=== PATIENT | female | born 1980 | race Caucasian/White ===

== ENCOUNTER 2019-02-12 05:08 | Emergency (ER) | payer BC, SELFPAY ==
[2019-02-12 05:09] VITALS: BP 105/88; PULSE 89; RESP 18; TEMP 36.6; O2SAT 100; BMI 17.3
[2019-02-12] MEDS: 0.9% Normal Saline 1,000 ML 1000 ML IV (05:19)
--- NOTE | 2019-02-12 05:19 | ED.VIS.GEN ---
History of Present Illness Chief Complaint: Nausea/Vomiting Informant: Patient Narrative: Patient stated yesterday evening she started having nausea and vomiting while at work. No bad food exposures. No recent antibiotics. Nothing she can think of that brought in on. She is never had a before. No fevers or chills. No abdominal pain or diarrhea. No home treatment. Current severity is moderate. She stated she is vomited more than 5 or 6 times. She is having dry heaving. Denies . Past Medical History - Allergies and Home Meds Allergies/Adverse Reactions: Allergies Penicillins Adverse Reaction (Verified 02/12/19 05:09) Rash Primary Care Physician: Juventino Wright DO [NON CLINICAL AFFILIATE] - Prior records reviewed: Yes Past Medical History: - - Asthma Surgical History: - - Reviewed with patient Lives: With Family Smoking Status: Never smoker Alcohol: None Drugs: None Review of Systems General: Denies: Chills, Fever, Sweats Eyes: Denies: Visual changes - bilaterally, Diplopia ENT: Denies: Rhinorrhea, Sore throat Cardiovascular: Denies: Chest pain, Palpitations Respiratory: Denies: Dyspnea, Cough, Dyspnea on exertion Gastrointestinal: Reports: Nausea, Vomiting. Denies: Abdominal pain, Diarrhea, Melena, Hematochezia Genitourinary: Denies: Dysuria, Hematuria, Frequency Musculoskeletal: Denies: Back pain, Extremity Pain Skin: Denies: Rash, Wounds Neurological: Denies: Headache, Weakness, Numbness Physical Exam Vital Signs/Narrative: Vital Signs Temp Pulse Resp BP Pulse Ox 02/12/19 05:09 97.9 F 89 18 105/88 H 100 General: Well nourished, Well developed, No Acute Distress Head: Normocephalic, Atraumatic Eyes: Perrl, EOMI ENT: Moist mucous membranes, No rhinorrhea Neck: Supple, Nontender Cardiovascular: Regular rate, Regular rhythm, No murmurs Respiratory: No distress, CTA bilaterally, Chest nontender Abdomen: Soft, Nontender, Nondistended, Normal bowel sounds Back: Nontender, Normal Inspection Extremities: Nontender, No edema Skin: Normal color, No rash Neurological: Alert, Oriented x3, Cranial nerves II-XII grossly intact, Normal Strength, Normal Sensation Psychological: Normal affect, Normal Mood Diagnostic/Tx/Re-eval - Medical Decision Making Given IV fluids and Zofran and Phenergan with good relief of symptoms. I do not feel she needs lab work or imaging. She is nontoxic. She will be given Zofran and Phenergan for home. This should help her symptoms stop. I feel she has an uncomplicated nausea and vomiting did have some dry heaves here but nothing that produced fluid ED Disposition - Plan for ED Patient: Disposition: Home or Assisted Living Diagnosis: Nausea and vomiting Instructions: VOMITING (7y-Adult) Prescriptions: proMETHazine tablet [Phenergan] 25 mg PO Q6H PRN PRN #10 tab PRN Reason: Nausea Prescription Printed Ondansetron [Zofran Odt] 4 mg PO Q8H PRN PRN #10 tab PRN Reason: Nausea Prescription Printed Referrals: Juventino Wright DO [NON CLINICAL AFFILIATE] -
[2019-02-12] MEDS: Ondansetron 4 MG/2 ML Vial IV ×2 (05:21→06:55)
[2019-02-12] MEDS: proMETHazine 25 MG/ML Syringe 12.5 MG IV (06:18)
[2019-02-12] MEDS: DiphenhydrAMINE 50 MG/ML Syringe 25 MG IV (07:41)
[2019-02-12] MEDS: Metoclopramide 10 MG/2 ML Vial IV (07:41)
[2019-02-12 07:43] VITALS: BP 119/62; PULSE 54; RESP 16; O2SAT 98
[2019-02-12 08:34] VITALS: BP 132/69; PULSE 59; RESP 16; O2SAT 99
== END 2019-02-12 08:35 | disposition home or self-care (01) ==
PROVIDERS: Emergency Provider Emergency Medicine; Family Provider Family Medicine; PCP Family Medicine
DX: R11.2 Nausea with vomiting, unspecified (principal); J45.909 Unspecified asthma, uncomplicated
CPT/HCPCS: 96361; 96374; 96375; 96376; 99283; J7030; A4216; J2405

== ENCOUNTER 2021-03-26 15:06 | Emergency (ER) | payer OTHER, SELFPAY ==
[2021-03-26 15:07] VITALS: BP 90/56; PULSE 123; RESP 24; TEMP 36.6; O2SAT 96; BMI 17.3
--- NOTE | 2021-03-26 15:20 | RAD_ITS ---
STUDY: X-RAY CHEST REASON FOR EXAM: Female, 40 years old. Dyspnea asthma attack TECHNIQUE: Frontal portable view of the chest COMPARISON: 15 March 2012 FINDINGS: Lungs are severely hyperinflated. There is no pneumothorax, pulmonary opacities, cardiomegaly or pleural effusion. Appearance is similar to prior. RAD/Chest 1 View (Portable) IMPRESSION: Severe hyperinflation. Otherwise no acute chest disease. Electronically Signed: Rosalina Jordan MD at 16:10 EST Tel , Service support ,
[2021-03-26] MEDS: Ipratropium/Albuterol Sulfate 3 ML AMPUL.NEB INHALATION (15:21)
[2021-03-26 15:22] VITALS: PULSE 120; RESP 21
[2021-03-26 15:28] VITALS: PULSE 108; RESP 17; O2SAT 95
[2021-03-26] MEDS: MethylPREDNISolone 125 MG/2 ML Vial 80 MG IV (15:30)
[2021-03-26 15:33] VITALS: O2SAT 94
[2021-03-26 15:37] LABS: Absolute Lymphocyte Count 4.13 X10^3/uL (0.83-4.51); Absolute Neutrophil Count 4.3 X10^3/uL (2.0-7.7); Basophil# 0.06 X10^3/uL; Basophil% 0.6 % (0-1); Eosinophil# 0.58 X10^3/uL; Eosinophils% 5.9 % (0-5); Hematocrit 44.8 % (37-47); Hemoglobin 15.3 g/dL (12.0-15.0); Lymphocyte # 4.13 X10^3/ul (0.83-4.51); Lymphocyte % 42.4 % (19-41); Mean Corp Hgb Conc 34.2 g/dL (32-36); Mean Corpuscular Hgb 32.6 pg (27.0-32.0); Mean Corpuscular Volume 95.3 fL (81-99); Mean Platelet Vol. 8.7 fl (6.2-12.0); Monocyte# 0.63 X10^3/uL; Monocyte% 6.5 % (0-10); NRBC Flagged by Analyzer 0 % (0-5); Neutrophil # 4.31 X10^3/uL (2.7-7.7); Neutrophil % 44.2 % (47-70); Platelet Count 401 K/mm3 (150-450); RBC Distribution Width CV 12.4 % (11.6-14.6); RBC Distribution Width SD 43.1 fl (35.1-43.9); White Blood Count 9.8 K/mm3 (4.4-11.0)
--- NOTE | 2021-03-26 15:37 | EDS_ITS ---
HPI History of Present Illness Chief Complaint: Asthma Informant: patient Onset/Context/Timing Onset: Today Context: sudden Timing: Continuous Quality: Positive for Wheezing and - (Tightness) Worsened by: Nothing Relieved by: Nothing Associated Symptoms cough and clear sputum; Negative for rhinorrhea, ear pain, fever, sore throat or chills Chest Pain: Positive for None Narrative Narrative: Patient presents with shortness of breath that has been getting worse over the past hour and a half. Patient states it came on rather suddenly. Patient states it has been constant. Patient states it feels like there is a tightness across her chest. Patient states nothing makes it better nothing makes it worse. Patient states she has been using albuterol at home with no improvement. Patient admits to a cough with some clear sputum. Patient denies any fevers or chills. Patient denies any chest pain. [facility] Medical History (Updated 03/26/21 @ 16:[address] Melvin Seo DO) Asthma History of inguinal hernia Home Medications albuterol sulfate [Proair Hfa (SP)Vent Pts] 1 - 2 puff INHALATION Q4H PRN PRN 03/05/17 [History Last Taken Unknown] prednisone 60 mg PO DAILY #15 tablet 03/26/21 [Rx Last Taken Unknown] Allergy/AdvReac Type Severity Reaction Status Date / Time Penicillins AdvReac Rash Verified 03/26/21 15:09 Surgical History (Updated 03/26/21 @ 15:[address] Melvin Seo DO) Hx of inguinal herniorrhaphy Social History Smoking Status: Never smoker ROS ROS ED Constitutional Constitutional ED: Denies chills or fever(s) Eyes Eyes: Denies blurry vision or change in vision ENT ENT ED: Denies rhinorrhea or sore throat Cardiovascular Cardiovascular: Denies chest pain or palpitations Respiratory/Chest Respiratory/Chest: Reports cough and dyspnea Gastrointestinal Gastrointestinal: Denies nausea or vomiting Genitourinary Genitourinary ED: Denies dysuria or hematuria Musculoskeletal Musculoskeletal: Denies back pain or neck pain Integumentary Denies abscess or rash Neurologic Neurologic: Denies headache(s) or weakness Allergic/Immunologic Allergic/Immunologic ED: Denies mouth swelling or urticaria EXAM Physical Exam Const Vital Signs: 03/26/21 15:07 11/07/21 15:22 03/26/21 15:28 Temperature 97.8 F Temperature Source Temporal Pulse Rate 123 H 120 H 108 H Respiratory Rate 24 H 21 H 17 Respiratory Effort Respiratory Depth Respiratory Pattern Tachypnea Blood Pressure 90/56 L Blood Pressure Mean 67 Pulse Ox 96 95 Oxygen Delivery Method Room Air Room Air 03/26/21 15:33 Temperature Temperature Source Pulse Rate Respiratory Rate Respiratory Effort Normal Respiratory Depth Normal Respiratory Pattern Normal Blood Pressure Blood Pressure Mean Pulse Ox Oxygen Delivery Method Room Air Positive well nourished and well developed General Appearance ED: well developed HEENT Reports moist mucous membranes Neck supple and no JVD Resp normal respiratory effort Auscultation: wheezes expiratory wheezes and throughout Cardio regular rhythm and no murmurs Rate: tachycardic GI normal to inspection, nondistended, normoactive bowel sounds and non-tender Palpation: soft Extremity normal to inspection General Extremety ED: Negative for edema or tenderness General Extremity: Negative for edema Neuro oriented x3, CN's II-XII intact bilaterally and no sensory deficits noted Sensorium / Orientation: alert Motor Exam: strength 5/5 throughout Psych mental status grossly normal Skin no rashes or lesions noted MDM MDM MDM Narrative Medical decision making narrative: Patient was on a DuoNeb here. Patient was given a dose of Solu-Medrol here. CBC and comprehensive metabolic profile were obtained were all within normal limits. Portable 1 view chest x-ray was obtained. On my interpretation, lung murillo are clear. There is normal cardiac silhouette. Bony thorax is normal. There is no acute process noted. Radiologist also interpreted the x-ray and agrees. Patient is feeling better on reevaluation. Lungs are clear on reevaluation. Patient was given a prescription for prednisone. Patient was instructed to follow-up with her primary care physician in 3 to 5 days. Patient was instructed to continue her albuterol as needed. Patient understood and was agreeable with the plan. All questions were answered. Lab Data Attestation: I reviewed the patient's lab results. Labs: Laboratory Results - last 24 hr 03/26/21 03/26/21 15:30 15:30 WBC 9.8 RBC 4.70 Hgb 15.3 H Hct 44.8 MCV 95.3 MCH 32.6 H MCHC 34.2 RDW Std Deviation 43.1 RDW Coeff of Meredith 12.4 Plt Count 401 MPV 8.7 Immature Gran % (Auto) 0.400 Neut % (Auto) 44.2 L Lymph % (Auto) 42.4 H Levy % (Auto) 6.5 Eos % (Auto) 5.9 H Baso % (Auto) 0.6 Absolute Neuts (auto) 4.3 Absolute Lymphs (auto) 4.13 Nucleated RBC % 0 Sodium 140 Potassium 3.8 Chloride 107 Carbon Dioxide 27.0 Anion Gap 6 BUN 13 Creatinine 1.05 H Estim Creat Clear Calc 50.48 Est GFR (MDRD) Af Amer 75 Est GFR (MDRD) Non-Af 62 BUN/Creatinine Ratio 12.4 Glucose 115 H Calcium 8.9 Total Bilirubin 0.30 AST 26 ALT 23 Alkaline Phosphatase 44 L Total Protein 7.9 Albumin 4.3 Globulin 3.6 Albumin/Globulin Ratio 1.2 Radiography Chest X-Ray - ED: 1 View, Read by ED Physician, Read by Radiologist and Normal Diagnostic Testing: Clinical Impression(s) from Imaging Studies Chest X-Ray 03/26/21 15:20 IMPRESSION: Severe hyperinflation. Otherwise no acute chest disease. Electronically Signed: Rosalina Jordan MD at 16:10 EST Tel , Service support , Discharge Plan Triage Chief Complaint: Asthma ED Provider: Melvin Seo Dx/Rx/DC Orders Clinical Impression: Asthma with acute exacerbation in adult Instructions: ED Asthma, Acute (Adult) Prescriptions: New prednisone 20 MG tablet 60 mg PO DAILY Qty: 15 RF: 0 No Action albuterol sulfate [ProAir HFA] 1 PUFF inhaler 1 - 2 puff inhalation Q4H PRN PRN (Reason: Bronchodialation) RF: 0 Primary Care Provider: Femi Richey Referrals: Femi Richey MD [Primary Care Provider] - 3-5 Days Activity Restrictions/Additional Instructions: Do not start the prednisone until tomorrow. Disposition Disposition: Home, Self Care
[2021-03-26 16:00] LABS: ALB/GLOB Ratio 1.2 RATIO (0.9-2.4); AST(SGOT) 26 U/L (15-37); Alanine Aminotransfer ALT/SGPT 23 U/L (13-56); Albumin, Serum 4.3 g/dL (3.2-5.0); Alkaline Phosphatase 44 U/L (45-117); Anion Gap 6 (5-15); BUN 13 mg/dL (7-18); BUN/Creat Ratio 12.4 RATIO (10-20); Calcium,Total 8.9 mg/dL (8.5-10.1); Chloride 107 mmol/L (98-107); Creatinine, Serum 1.05 mg/dL (0.55-1.02); EST Glomerular Filtration Rate 62 mL/min (>60); Est Glom Filt Rate - Afr Amer 75 mL/min (>60); Estimated Creatinine Clearance 50.48 ml/min; Globulin 3.6 g/dL (2.2-4.2); Glucose 115 mg/dL (74-106); Potassium 3.8 mmol/L (3.5-5.1); Protein, Total 7.9 g/dL (6.4-8.2); Sodium Level 140 mmol/L (136-145)
[2021-03-26 16:51] VITALS: PULSE 93; RESP 14; O2SAT 97
== END 2021-03-26 16:52 | disposition home or self-care (01) ==
PROVIDERS: Emergency Provider Emergency Medicine; PCP Family Medicine
DX: J45.901 Unspecified asthma with (acute) exacerbation (principal)
CPT/HCPCS: 71045; 80053; 85025; 94640; 96374; 99284; A4216

== ENCOUNTER 2021-04-08 18:05 | Emergency (ER) | payer OTHER, SELFPAY ==
[2021-04-08 18:06] VITALS: BP 119/66; PULSE 104; RESP 25; TEMP 36.2; O2SAT 94; BMI 16.9
[2021-04-08 18:14] VITALS: PULSE 110; RESP 21; O2SAT 95
--- NOTE | 2021-04-08 18:28 | EX.ED.DYSGE1 ---
HPI History of Present Illness Chief Complaint: Asthma Informant: patient Narrative Narrative: 40-year-old female presenting with shortness of breath. Patient has a history of asthma and has been using her albuterol inhaler without relief. She has had a productive cough. She denies fever. Denies sick contacts. She is vaccinated for Covid. Prior similar symptoms: Yes Recent Illness/Hospitalization: No PFSH PFSH Medical History (Updated 04/08/21 @ 20:[address] Paulina Armendariz MD) Asthma History of inguinal hernia Home Medications albuterol sulfate [Proair Hfa (SP)Vent Pts] 1 - 2 puff INHALATION Q4H PRN PRN 03/05/17 [History Last Taken Unknown] albuterol sulfate 2.5 mg INHALATION Q6H PRN #20 ml 04/08/21 [Rx Last Taken Unknown] prednisone 40 mg PO DAILY #10 tab 04/08/21 [Rx Last Taken Unknown] Allergy/AdvReac Type Severity Reaction Status Date / Time Penicillins AdvReac Rash Verified 04/08/21 18:07 Surgical History (Updated 03/26/21 @ 15:[address] Melvin Seo DO) Hx of inguinal herniorrhaphy Social History Smoking Status: Never smoker ROS ROS ED Constitutional Constitutional ED: Denies fever(s) Eyes Eyes: Denies change in vision ENT ENT ED: Denies rhinorrhea or sore throat Cardiovascular Cardiovascular: Denies chest pain or palpitations Respiratory/Chest Respiratory/Chest: Reports cough, dyspnea and sputum Gastrointestinal Gastrointestinal: Denies abdominal pain, diarrhea, nausea or vomiting Genitourinary Genitourinary ED: Denies dysuria Musculoskeletal Musculoskeletal: Denies myalgias Integumentary Denies rash Neurologic Neurologic: Denies headache(s) EXAM Physical Exam Const Vital Signs: 04/08/21 18:06 04/08/21 18:14 04/08/21 18:32 Temperature 97.1 F L Temperature Source Temporal Pulse Rate 104 H 110 H 118 H Respiratory Rate 25 H 21 H 22 H Respiratory Effort Short of Breath Labored Accessory Muscle Use Short of Breath Labored Respiratory Depth Deep Shallow Respiratory Pattern Tachypnea Tachypnea Blood Pressure 119/66 Blood Pressure Mean 83 Pulse Ox 94 95 95 Oxygen Delivery Method Room Air Room Air Room Air 04/08/21 19:28 04/08/21 20:18 04/08/21 20:40 Temperature Temperature Source Pulse Rate 110 H 109 H 111 H Respiratory Rate 12 12 12 Respiratory Effort Respiratory Depth Respiratory Pattern Blood Pressure 99/77 Blood Pressure Mean Pulse Ox 95 100 95 Oxygen Delivery Method Room Air Room Air Positive well nourished and well developed General Appearance ED: well developed HEENT Reports normocephalic and head/scalp atraumatic Eyes PERRL and EOMs intact bilaterally Neck supple General: Negative for tenderness Chest Wall inspection of chest normal Resp normal respiratory effort Auscultation: wheezes and diminished lung sounds Cardio regular rate and regular rhythm GI non-tender and non-distended Palpation: soft; Negative for guarding or rebound tenderness present no CVA tenderness Extremity normal to inspection Neuro oriented x3 Sensorium / Orientation: alert Psych mental status grossly normal MDM MDM MDM Narrative Medical decision making narrative: Patient was given albuterol, Atrovent aerosols. She was given prednisone. Chest x-ray read by myself and radiology shows no acute process. Covid is negative. On reevaluation, patient is feeling much improved. Her lungs are clear and equal bilaterally. She states she has a nebulizer at home but does not have medication for it. She was given prescription for albuterol. She was given prescription for prednisone. She will follow-up with her primary care physician. Advised return to ED for worsening complaints. Lab Data Attestation: I reviewed the patient's lab results. Radiography Diagnostic Testing: Clinical Impression(s) from Imaging Studies Chest X-Ray 04/08/21 19:45 IMPRESSION: Nonacute portable x-ray examination of the chest. Hyperexpansion compatible with history provided of asthma. Electronically Signed: Jose David Waters MD ([place]) at 20:23 EST , Service support , Discharge Plan Triage Chief Complaint: Asthma ED Provider: Paulina Armendariz Dx/Rx/DC Orders Clinical Impression: Asthma exacerbation Instructions: Asthma Prescriptions: New albuterol sulfate 5 mg/mL solution for nebulization 2.5 mg inhalation Q6H PRN (Reason: shortness of breath or wheezing) Qty: 20 RF: 0 prednisone 20 mg tablet 40 mg PO DAILY Qty: 10 RF: 0 No Action albuterol sulfate [ProAir HFA] 1 PUFF inhaler 1 - 2 puff inhalation Q4H PRN PRN (Reason: Bronchodialation) RF: 0 Primary Care Provider: Femi Richey Referrals: Femi Richey MD [Primary Care Provider] - Disposition Disposition: Home, Self Care Discharge Date/Time: 04/08/21 20:43
[2021-04-08 18:32] VITALS: PULSE 118; RESP 18; RESP 22; O2SAT 95
[2021-04-08] MEDS: Ipratropium/Albuterol Sulfate 3 ML AMPUL.NEB INHALATION (18:32)
[2021-04-08] MEDS: Albuterol 2.5 MG/3 ML VIAL.NEB. INHALATION ×3 (18:48→20:14)
[2021-04-08] MEDS: predniSONE 20 MG Tablet 60 MG PO (18:51)
--- NOTE | 2021-04-08 19:19 | CPS ---
x2 Albuterol given to pt. in ER as well. She refuses 3rd albuterol at this time, due to increase in tremors, heart rate and she claims they're not helping her much at this time
[2021-04-08 19:28] VITALS: PULSE 110; RESP 12; O2SAT 95
--- NOTE | 2021-04-08 19:45 | RAD_ITS ---
STUDY: X-RAY CHEST REASON FOR EXAM: Female, 40 years old. sob , asthma. TECHNIQUE: AP COMPARISON: 03/26/2021 FINDINGS: EKG leads project over the chest. The lungs are clear but hyper expanded. There is no demonstrated pleural abnormality. Normal size heart. Normal mediastinum and arlen. Normal visualized pulmonary arteries. Normal visualized aortic arch and descending thoracic aorta. Normal visualized thoracic spine. Normal visualized ribs, clavicles, and shoulders. There is no demonstrated abnormality of the visualized soft tissue structures of the upper abdomen. RAD/Chest 1 View (Portable) IMPRESSION: Nonacute portable x-ray examination of the chest. Hyperexpansion compatible with history provided of asthma. Electronically Signed: Jose David Waters MD ([place]) at 20:23 EST , Service support ,
[2021-04-08 20:18] VITALS: PULSE 109; RESP 12; O2SAT 100
--- NOTE | 2021-04-08 20:29 | CPS ---
[2014] Pt. asked for third albuterol breathing tx. in ER. Pre-assessment: HR 95, breaths/min 16 with diminished breath sounds. Post-assessment: HR 105, breaths/min 14 with cleared up upper lobe breath sounds.
[2021-04-08 20:40] VITALS: BP 99/77; PULSE 111; RESP 12; O2SAT 95
== END 2021-04-08 20:43 | disposition home or self-care (01) ==
PROVIDERS: Emergency Provider Emergency Medicine; PCP Family Medicine
DX: J45.901 Unspecified asthma with (acute) exacerbation (principal)
CPT/HCPCS: 71045; 87426; 94640; 99251; 99282; G0463

== ENCOUNTER 2021-04-20 06:59 | Emergency (ER) | payer OTHER, SELFPAY ==
[2021-04-20 07:00] VITALS: PULSE 131; RESP 27; TEMP 35.8; O2SAT 97; BMI 17.5
[2021-04-20 07:04] VITALS: PULSE 142; RESP 21; RESP 22; O2SAT 96
[2021-04-20 07:06] VITALS: BP 145/123; PULSE 127; RESP 26; O2SAT 96
--- NOTE | 2021-04-20 07:06 | RAD_ITS ---
HISTORY: respiratory distress EXAMINATION/TECHNIQUE: XR Chest 1 View: COMPARISON: April 08, 2021 FINDINGS: LINES/DEVICES: None. LUNGS: Lungs are symmetrical hyperexpanded. No airspace consolidation. Unremarkable interstitium. No effusion. No pneumothorax. MEDIASTINUM: No cardiomegaly. MUSCULOSKELETAL: No acute osseous finding. RAD/Chest 1 View (Portable) IMPRESSION: Symmetric hyperexpansion as can be seen with asthma in the appropriate setting. No evidence of consolidative pneumonia. at 0753 Reported and signed by: Ar Echevarria MD Electronically Signed: Ar Echevarria MD at 7:51 EST Tel , Service support ,
--- NOTE | 2021-04-20 07:07 | EX.ED.DYSGE1 ---
HPI History of Present Illness Chief Complaint: Asthma Informant: patient Narrative Narrative: 40-year-old female with a prior medical history of asthma presenting to the emergency room with respiratory distress. Patient was seen twice last month in the emergency room for asthma exacerbation. The last was 08 April. Patient states that over the weekend she began to have some sinus congestion and cough. Her nebulizer at home was helping her until this morning when it failed to relieve her symptoms. She denies any fever. She does note chest congestion with cough and sputum production. [facility] Medical History Asthma History of inguinal hernia Home Medications albuterol sulfate [Proair Hfa (SP)Vent Pts] 1 - 2 puff INHALATION Q4H PRN PRN 03/05/17 [History Last Taken Unknown] albuterol sulfate 2.5 mg INHALATION Q6H PRN #20 ml 04/08/21 [Rx Last Taken Unknown] prednisone 40 mg PO DAILY #10 tab 04/08/21 [Rx Last Taken Unknown] albuterol sulfate [Ventolin HFA] 2 puff INHALATION Q4H PRN PRN #1 inhaler 04/20/21 [Rx Last Taken Unknown] prednisone 60 mg PO DAILY #15 tablet 04/20/21 [Rx Last Taken Unknown] Allergy/AdvReac Type Severity Reaction Status Date / Time Penicillins AdvReac Rash Verified 04/20/21 07:00 Surgical History Hx of inguinal herniorrhaphy Social History (Updated 04/20/21 @ 07:[address] Siva Pérez DO) Smoking Status: Never smoker substance use type: does not use ROS ROS ED Constitutional Constitutional ED: Denies chills or weight loss Eyes Eyes: Denies change in vision or diplopia ENT ENT ED: Denies ear pain, rhinorrhea or sore throat Cardiovascular Cardiovascular: Denies chest pain, orthopnea, palpitations or racing heartbeat Respiratory/Chest Respiratory/Chest: Reports cough, dyspnea, dyspnea on exertion and sputum; Denies orthopnea Gastrointestinal Gastrointestinal: Denies abdominal pain, diarrhea, nausea or vomiting Genitourinary Genitourinary ED: Denies dysuria, hematuria or urinary frequency Musculoskeletal Musculoskeletal: Denies arthralgias or myalgias Integumentary Denies abscess or rash Neurologic Neurologic: Denies headache(s) or weakness Psychiatric Psychiatric: Denies anxiety, depression, suicidal ideation or suicidal thoughts Endocrine Endocrinology: Denies polydipsia, polyphagia or polyuria Allergic/Immunologic Allergic/Immunologic ED: Denies mouth swelling, tongue swelling or urticaria EXAM Physical Exam Narrative Exam Narrative: Patient is sitting in the tripod position in obvious respiratory distress Const Vital Signs: 04/20/21 07:00 04/20/21 07:04 04/20/21 07:06 Temperature 96.4 F L Temperature Source Temporal Pulse Rate 131 H 142 H 127 H Respiratory Rate 27 H 21 H 26 H Respiratory Effort Short of Breath Labored Accessory Muscle Use Head Bobbing Blood Pressure 145/123 H Blood Pressure Mean 130 Pulse Ox 97 96 96 Oxygen Delivery Method Room Air Room Air 04/20/21 07:34 04/20/21 08:06 Temperature 97.4 F L Temperature Source Temporal Pulse Rate 120 H Respiratory Rate 14 Respiratory Effort Short of Breath Labored Accessory Muscle Use Nasal Flaring Blood Pressure 101/80 Blood Pressure Mean 87 Pulse Ox 99 Oxygen Delivery Method Room Air Non-Rebreather Positive well nourished and well developed General Appearance ED: well developed HEENT Reports normocephalic, head/scalp atraumatic, TM's clear and moist mucous membranes HEENT Narrative: Turbinate edema Negative for trauma Tympanic Membrane ED: Yes TM's clear Eyes PERRL and EOMs intact bilaterally Neck no lymphadenopathy, supple and no JVD Resp Resp Narrative: Respiratory distress Auscultation: wheezes and diminished lung sounds Cardio regular rate and no murmurs Rate: tachycardic GI normal to inspection, nondistended, normoactive bowel sounds and non-tender Palpation: soft Back/Spine no CVA tenderness and normal ROM Extremity normal to inspection General Extremety ED: Negative for edema General Extremity: Negative for edema Neuro oriented x3 and CN's II-XII intact bilaterally Sensorium / Orientation: alert Motor Exam: strength 5/5 throughout Psych mental status grossly normal Mood & Affect: Negative for depressed or tearful Skin no rashes or lesions noted and no wounds MDM MDM MDM Narrative Medical decision making narrative: White count 11.3. Covid negative. Chest x-ray shows symmetric hyperexpansion. Patient received DuoNeb albuterol and Solu-Medrol and was observed. She is doing significantly better. Her lung sounds demonstrate significantly improved aeration. Patient used to be on Advair but due to insurance reasons discontinued it. She has had 3 asthma attacks necessitating emergency department treatments in the past month. She would benefit from pulmonary care. She does not currently see a ep technologist. She has albuterol solution at home. I will write for new MDI also place her on steroids Lab Data Attestation: I reviewed the patient's lab results. Labs: Laboratory Results - last 24 hr 04/20/21 04/20/21 07:25 07:25 WBC 11.3 H RBC 4.83 Hgb 15.5 H Hct 44.8 MCV 92.8 MCH 32.1 H MCHC 34.6 RDW Std Deviation 44.3 H RDW Coeff of Meredith 12.9 Plt Count 442 MPV 9.0 Immature Gran % (Auto) 0.800 Neut % (Auto) 55.9 Lymph % (Auto) 30.3 [place] % (Auto) 6.9 Eos % (Auto) 5.5 H Baso % (Auto) 0.6 Absolute Neuts (auto) 6.3 Absolute Lymphs (auto) 3.43 Nucleated RBC % 0 Sodium 139 Potassium 3.8 Chloride 107 Carbon Dioxide 22.0 Anion Gap 10 BUN 10 Creatinine 0.77 Estim Creat Clear Calc 67.43 Est GFR (MDRD) Af Amer 107 Est GFR (MDRD) Non-Af 89 BUN/Creatinine Ratio 13.0 Glucose 126 H Calcium 9.2 Radiography Diagnostic Testing: Clinical Impression(s) from Imaging Studies Chest X-Ray 04/20/21 07:06 IMPRESSION: Symmetric hyperexpansion as can be seen with asthma in the appropriate setting. No evidence of consolidative pneumonia. at 0753 Reported and signed by: Ar Echevarria MD Electronically Signed: Ar Echevarria MD at 7:51 EST Tel , Service support , Discharge Plan Triage Chief Complaint: Asthma ED Provider: Siva Pérez Dx/Rx/DC Orders Clinical Impression: Acute asthma exacerbation Instructions: ED Asthma, Acute (Adult) Prescriptions: New prednisone 20 MG tablet 60 mg PO DAILY Qty: 15 RF: 0 albuterol sulfate [Ventolin HFA] 1 INHALER inhaler 2 puff inhalation Q4H PRN PRN (Reason: Wheezing) Qty: 1 RF: 0 No Action albuterol sulfate [ProAir HFA] 1 PUFF inhaler 1 - 2 puff inhalation Q4H PRN PRN (Reason: Bronchodialation) RF: 0 albuterol sulfate 5 mg/mL solution for nebulization 2.5 mg inhalation Q6H PRN (Reason: shortness of breath or wheezing) Qty: 20 RF: 0 prednisone 20 mg tablet 40 mg PO DAILY Qty: 10 RF: 0 Primary Care Provider: Femi Richey Referrals: Artemio Casas DO [STAFF PHYSICIAN] - As soon as possible (FOR PULMONARY EVALUATION) Femi Richey MD [Primary Care Provider] - Disposition Disposition: Home, Self Care
[2021-04-20] MEDS: Ipratropium/Albuterol Sulfate 3 ML AMPUL.NEB INHALATION (07:10)
[2021-04-20] MEDS: Albuterol 2.5 MG/3 ML VIAL.NEB. INHALATION ×2 (07:11)
[2021-04-20] MEDS: MethylPREDNISolone 125 MG/2 ML Vial IV (07:33)
[2021-04-20 07:34] VITALS: BP 101/80; PULSE 120; RESP 14; TEMP 36.3; O2SAT 99
[2021-04-20 07:35] LABS: Absolute Lymphocyte Count 3.43 X10^3/uL (0.83-4.51); Absolute Neutrophil Count 6.3 X10^3/uL (2.0-7.7); Basophil# 0.07 X10^3/uL; Basophil% 0.6 % (0-1); Eosinophil# 0.62 X10^3/uL; Eosinophils% 5.5 % (0-5); Hematocrit 44.8 % (37-47); Hemoglobin 15.5 g/dL (12.0-15.0); Lymphocyte # 3.43 X10^3/ul (0.83-4.51); Lymphocyte % 30.3 % (19-41); Mean Corp Hgb Conc 34.6 g/dL (32-36); Mean Corpuscular Hgb 32.1 pg (27.0-32.0); Mean Corpuscular Volume 92.8 fL (81-99); Monocyte# 0.78 X10^3/uL; Monocyte% 6.9 % (0-10); NRBC Flagged by Analyzer 0 % (0-5); Neutrophil # 6.32 X10^3/uL (2.7-7.7); Neutrophil % 55.9 % (47-70); Platelet Count 442 K/mm3 (150-450); RBC Distribution Width CV 12.9 % (11.6-14.6); RBC Distribution Width SD 44.3 fl (35.1-43.9); Red Blood Count 4.83 M/mm3 (4.2-5.4); White Blood Count 11.3 K/mm3 (4.4-11.0)
[2021-04-20 07:47] LABS: Anion Gap 10 (5-15); BUN 10 mg/dL (7-18); Calcium,Total 9.2 mg/dL (8.5-10.1); Chloride 107 mmol/L (98-107); Creatinine, Serum 0.77 mg/dL (0.55-1.02); EST Glomerular Filtration Rate 89 mL/min (>60); Est Glom Filt Rate - Afr Amer 107 mL/min (>60); Estimated Creatinine Clearance 67.43 ml/min; Glucose 126 mg/dL (74-106); Potassium 3.8 mmol/L (3.5-5.1); Sodium Level 139 mmol/L (136-145)
[2021-04-20 08:06] VITALS: O2SAT 96
[2021-04-20 09:36] VITALS: BP 99/76; PULSE 110; RESP 18; O2SAT 97
== END 2021-04-20 09:37 | disposition home or self-care (01) ==
PROVIDERS: Emergency Provider Emergency Medicine; PCP Family Medicine
DX: J45.901 Unspecified asthma with (acute) exacerbation (principal)
CPT/HCPCS: 71045; 80048; 85025; 87426; 94640; 96374; 99251; 99283; A4216; G0463

== ENCOUNTER 2021-06-20 17:57 | Emergency (ER) | payer OTHER, SELFPAY ==
[2021-06-20] VITALS (7 sets, daily range): BP systolic 110–115; BP diastolic 69–95; PULSE 96–115; RESP 15–26; TEMP 36.2; O2SAT 95–97; BMI 18.6
--- NOTE | 2021-06-20 18:22 | EDS_ITS ---
HPI History of Present Illness Chief Complaint: Asthma Detail of Chief Complaint: Shortness of breath that started this morning Informant: patient Narrative Narrative: Patient presents to the emergency department complaint shortness of breath that started this morning. Patient has history of asthma and ran out of her Flovent and did not have it today. Patient complains of a mild cough. She denies fever. She denies Covid exposures. Patient has had the Covid vaccine and booster. Patient states that her symptoms are typical of her asthma exacerbations. Patient denies recent travel or surgery. She denies any chest pain. [facility] Medical History Asthma History of inguinal hernia Home Medications albuterol sulfate [Proair Hfa (SP)Vent Pts] 1 - 2 puff INHALATION Q4H PRN PRN 03/05/17 [History Last Taken Unknown] albuterol sulfate 2.5 mg INHALATION Q6H PRN #20 ml 04/08/21 [Rx Last Taken Unknown] albuterol sulfate [Ventolin HFA] 2 puff INHALATION Q4H PRN PRN #1 inhaler 04/20/21 [Rx Last Taken Unknown] prednisone 60 mg PO DAILY #15 tablet 04/20/21 [Rx Last Taken Unknown] prednisone 20 mg PO BID #6 tab 06/20/21 [Rx Last Taken Unknown] prednisone 20 mg PO BID #6 tab 06/20/21 [Rx Last Taken Unknown] Allergy/AdvReac Type Severity Reaction Status Date / Time Penicillins AdvReac Rash Verified 06/20/21 17:58 Surgical History Hx of inguinal herniorrhaphy Social History (Updated 04/20/21 @ 07:[address] Siva Pérez DO) Smoking Status: Never smoker substance use type: does not use ROS ROS ED Constitutional Constitutional ED: Reports systems reviewed and no addt'l complaints, except as documented; Denies body ache(s), change in weight or chills Eyes Eyes: Denies acute decrease in peripheral vision, change in vision, double vision or loss of vision ENT ENT ED: Reports none; Denies ear pain, lip swelling, loss taste/smell, neck pain, otalgia or sore throat Cardiovascular Cardiovascular: Reports none; Denies abdominal pain, chest pain with activity, leg edema, lightheadedness, palpitations, rapid heart rate or syncope Respiratory/Chest Respiratory/Chest: Reports none, cough and dyspnea; Denies change in mental status, dry cough, hemoptysis, shortness of breath at rest, shortness of breath with exertion or sputum Gastrointestinal Gastrointestinal: Reports none; Denies abdominal pain, change in stool character, diarrhea, hematemesis, hematochezia, melena, rectal bleeding or vomit ing Genitourinary Genitourinary ED: Reports none; Denies abdominal discomfort, anuria, dysuria, genital pain or polyuria Musculoskeletal Musculoskeletal: Reports none; Denies arthralgias, back pain, difficulty walking, extremity pain, muscle weakness or myalgias Integumentary Reports none; Denies abscess or rash Neurologic Neurologic: Reports none; Denies abnormal gait, confusion, focal weakness, frequent falls, headache(s), loss of vision, numbness, paresthesias, radicular pain, vertigo or weakness Psychiatric Psychiatric: Reports systems reviewed and no addt'l complaints, except as documented and none; Denies behavioral changes, confusion, difficulty concentrating, hallucinations, suicidal ideation, tactile hallucinations or vi sual hallucinations Endocrine Endocrinology: Denies none, cold intolerance, excessive sweating, fatigue or heat intolerance Hematologic/Lymphatic Hematologic/Lymphatic: Reports none; Denies anemia, easy bleeding or easy bruising Allergic/Immunologic Allergic/Immunologic ED: Denies as per HPI, none, lip swelling, mouth swelling, throat swelling, tongue swelling or hives EXAM Physical Exam Const Vital Signs: 06/20/21 17:58 06/20/21 18:11 06/20/21 18:25 Temperature 97.2 F L Temperature Source Temporal Pulse Rate 107 H 106 H Respiratory Rate 26 H 17 Respiratory Effort Short of Breath Respiratory Pattern Tachypnea Blood Pressure 112/95 H Blood Pressure Mean 100 Pulse Ox 95 Oxygen Delivery Method Room Air Room Air 06/20/21 19:04 06/20/21 19:25 06/20/21 19:33 Temperature Temperature Source Pulse Rate 115 H 106 H 99 Respiratory Rate 18 20 H 16 Respiratory Effort Respiratory Pattern Blood Pressure 115/80 Blood Pressure Mean 91 Pulse Ox 95 95 Oxygen Delivery Method Room Air Room Air 06/20/21 20:09 Temperature Temperature Source Pulse Rate 96 Respiratory Rate 15 Respiratory Effort Respiratory Pattern Blood Pressure 110/69 Blood Pressure Mean 82 Pulse Ox 96 Oxygen Delivery Method Room Air Positive well nourished and well developed General Appearance ED: well developed and NAD HEENT Reports TM's clear and moist mucous membranes normocephalic and atraumatic; Negative for trauma or tenderness Tympanic Membrane ED: Yes TM's clear Eyes PERRL and EOMs intact bilaterally General Eye ED: Negative for pale conjunctiva or scleral icterus Neck no lymphadenopathy, supple and no JVD General: Negative for tenderness Chest Wall inspection of chest normal and palpation of chest normal Chest: Negative for tenderness Resp Resp Narrative: Patient with mild tachypnea and decreased breath sounds bilaterally with faint expiratory wheezes. No accessory muscle use or retractions. Effort and Inspection: Negative for respiratory distress or pain with movement Auscultation: wheezes and diminished lung sounds; Negative for rhonchi Cardio regular rate, regular rhythm, S1 normal heart sound, S2 normal heart sound and no murmurs Peripheral Pulses: pulses 2+ throughout GI normal to inspection, nondistended, normoactive bowel sounds, soft to palpation, non-tender, non-distended and no masses Back/Spine no CVA tenderness and no thoracic nor lumbar tenderness Extremity normal to inspection General Extremety ED: Negative for edema General Extremity: Negative for edema Neuro oriented x3, CN's II-XII intact bilaterally, no sensory deficits noted and gait normal Sensorium / Orientation: awake, alert, oriented to person, oriented to place and oriented to time Motor Exam: strength 5/5 throughout and strength abnormal Psych mental status grossly normal Skin no rashes or lesions noted and no wounds MDM MDM MDM Narrative Medical decision making narrative: Patient received albuterol and Atrovent aerosol followed by 2 more albuterol's and a second DuoNeb aerosol. Patient was given prednisone 40 mg p.o. She was feeling markedly improved after treatment. She was able to low peak flows of 300. Patient at this point is comfortable going home and she is never required admission for her asthma. Patient will be given a prescription for prednisone for 3 more days. She has albuterol for her nebulizer at home and she will get her Flovent tomorrow. Patient advised to return if increasing shortness of breath or condition should worsen anyway. Discharge Plan Triage Chief Complaint: Asthma ED Provider: Adonay Amos Dx/Rx/DC Orders Clinical Impression: Asthma exacerbation Instructions: ED Asthma, Acute (Adult) Prescriptions: New prednisone 20 mg tablet 20 mg PO BID Qty: 6 RF: 0 prednisone 20 mg tablet 20 mg PO BID Qty: 6 RF: 0 Discontinued prednisone 20 mg tablet 40 mg PO DAILY Qty: 10 RF: 0 No Action albuterol sulfate [ProAir HFA] 1 PUFF inhaler 1 - 2 puff inhalation Q4H PRN PRN (Reason: Bronchodialation) RF: 0 albuterol sulfate 5 mg/mL solution for nebulization 2.5 mg inhalation Q6H PRN (Reason: shortness of breath or wheezing) Qty: 20 RF: 0 prednisone 20 MG tablet 60 mg PO DAILY Qty: 15 RF: 0 albuterol sulfate [Ventolin HFA] 1 INHALER inhaler 2 puff inhalation Q4H PRN PRN (Reason: Wheezing) Qty: 1 RF: 0 Primary Care Provider: Femi Richey Referrals: Femi Richey MD [Primary Care Provider] - 3-5 Days Disposition Disposition: Home, Self Care Discharge Date/Time: 06/20/21 20:22
[2021-06-20] MEDS: predniSONE 20 MG Tablet 40 MG PO (18:23)
[2021-06-20] MEDS: Ipratropium/Albuterol Sulfate 3 ML AMPUL.NEB INHALATION (18:23)
[2021-06-20] MEDS: Albuterol 2.5 MG/3 ML VIAL.NEB. INHALATION ×2 (18:25)
== END 2021-06-20 20:22 | disposition home or self-care (01) ==
PROVIDERS: Emergency Provider Emergency Medicine; PCP Family Medicine; Visit Provider Emergency Medicine
DX: J45.901 Unspecified asthma with (acute) exacerbation (principal)
CPT/HCPCS: 87426; 94640; 99283

== ENCOUNTER 2022-10-16 11:30 | Emergency (ER) | payer OTHER, SELFPAY ==
[2022-10-16 11:31] VITALS: BP 117/84; PULSE 79; RESP 18; TEMP 36.6; O2SAT 98; BMI 17.7
--- NOTE | 2022-10-16 11:42 | RAD_ITS ---
EXAM: XR LEFT HAND COMPLETE, 3 OR MORE VIEWS CLINICAL INDICATION: Injury/Pain TECHNIQUE: Frontal, lateral and oblique views of the left hand. COMPARISON: No relevant prior studies available. FINDINGS: BONES/JOINTS: No acute abnormality. SOFT TISSUES: Normal. No soft tissue swelling or gas. No radiopaque foreign body. RAD/Hand Min 3 Views IMPRESSION: Intact left hand. Electronically Signed: Rosendo Wood MD at 12:37 EDT ,
--- NOTE | 2022-10-16 11:50 | EX.ED.UPPERE ---
HPI History of Present Illness Chief Complaint: Upper Extremity Injury Detail of Chief Complaint: Injury palm left hand Informant: patient Occured/Mechanism Mechanism/Context: Yes injury and Yes blunt trauma Onset/Context/Timing Onset: Hours Context: Sudden Onset Timing: Continuous Quality of Pain: Dull and Aching Location: Thenar eminence left hand Current Severity: Mild Maximum Severity: Severe Worsened by: Initial injury Relieved by: Rest Associated Symptoms Associated Symptoms: Positive for Parasthesia; Negative for Weakness or Loss of Funtion Narrative Narrative: Patient is a 42-year-old [id number] woman who presents with injury to the palm of her left hand. She had a puncture wound from the top of a wire fence. She states she felt electrical shock go down into her index and long finger and up to her elbow. She also felt bone pain . She initially had trouble making a fist. She now complains of pain localized to the puncture site. Tetanus status is unknown. She is on no immunosuppressive meds. She does have history of asthma and has been on Pred zone in the past. She has no other complaints. Tetanus Immunization: Unknown Prior similar symptoms: No Recent Illness/Hospitalization: No [facility] Medical History Asthma History of inguinal hernia Home Medications albuterol sulfate 90 mcg/actuation aerosol inhaler (ProAir HFA) 1 - 2 puff inhalation Q4H PRN PRN Bronchodialation 03/05/17 [History Last Taken Unknown] albuterol sulfate 5 mg/mL(0.5 %) solution for nebulization 2.5 mg (0.5 mL) inhalation Q6H PRN shortness of breath or wheezing #20 mL 04/08/21 [Rx Last Taken Unknown] albuterol sulfate 90 mcg/actuation aerosol inhaler (Ventolin HFA) 2 puff inhalation Q4H PRN PRN Wheezing ##1 04/20/21 [Rx Last Taken Unknown] prednisone 20 mg tablet 60 mg PO DAILY #15 TABLETS 04/20/21 [Rx Last Taken Unknown] prednisone 20 mg tablet 20 mg PO BID #6 tabs 06/20/21 [Rx Last Taken Unknown] prednisone 20 mg tablet 20 mg PO BID #6 tabs 06/20/21 [Rx Last Taken Unknown] Allergy/AdvReac Type Severity Reaction Status Date / Time Penicillins AdvReac Rash Verified 10/16/22 11:32 Surgical History Hx of inguinal herniorrhaphy Social History (Updated 10/16/22 @ 11:[address] Sandeep Servin MD) household members: children Smoking Status: Never smoker substance use type: does not use ROS ROS ED Integumentary Reports other Details: Puncture wound thenar eminence left hand Neurologic Neurologic: Reports paresthesias; Denies headache(s) or weakness Psychiatric Psychiatric: Denies anxiety Hematologic/Lymphatic Hematologic/Lymphatic: Denies easy bleeding EXAM Physical Exam Const Vital Signs: 10/16/22 11:31 Temperature 97.8 F Temperature Source Temporal Pulse Rate 79 Respiratory Rate 18 Blood Pressure 117/84 H Blood Pressure Mean 95 Pulse Ox 98 Oxygen Delivery Method Room Air Positive well nourished and well developed General Appearance ED: well developed and NAD HEENT Reports moist mucous membranes normocephalic and atraumatic Eyes PERRL and EOMs intact bilaterally Neck full ROM Resp normal respiratory effort Cardio regular rate and regular rhythm Extremity full ROM; Negative for normal to inspection Extremity Narrative: There is a puncture wound thenar eminence of the left hand. There is bruising noted and swelling over the thenar eminence There is tenderness in the proximity of the puncture wound. Median, radial and ulnar function intact. Flexor and extensor mechanism intact. No palpable foreign body. Neuro oriented x3, CN's II-XII intact bilaterally, moves all extremities, no focal motor deficits and no sensory deficits noted Psych mental status grossly normal Skin Skin Narrative: Puncture wound 4 mm thenar eminence left hand MDM MDM MDM Narrative Medical decision making narrative: Tetanus was updated. X-ray was obtained to evaluate for metallic foreign body and possible injury to the first metacarpal. History & Record Review Additional record(s) reviewed:: Prior outpatient record and Prior ED visit Radiography Chest X-Ray - ED: Read by ED Physician (Three-view x-ray left hand was independently interpreted by me as negative for fracture, foreign body etc. This was performed at 1221.) Treatment and Re-Evaluation Narrative: Wound was cleansed. Tetanus was updated. Patient was discharged home with appropriate home-going structures. Discharge Plan Triage Chief Complaint: Upper Extremity Injury ED Provider: Sandeep Servin Dx/Rx/DC Orders Clinical Impression: Puncture wound of left palm, Paresthesia of left upper extremity Instructions: ED Puncture Wound (General) Prescriptions: No Action albuterol sulfate [ProAir HFA] 1 PUFF inhaler 1 - 2 puff inhalation Q4H PRN PRN (Reason: Bronchodialation) albuterol sulfate 5 mg/mL solution for nebulization 2.5 mg inhalation Q6H PRN (Reason: shortness of breath or wheezing) Qty: 20 0RF prednisone 20 MG tablet 60 mg PO DAILY Qty: 15 0RF albuterol sulfate [Ventolin HFA] 1 INHALER inhaler 2 puff inhalation Q4H PRN PRN (Reason: Wheezing) Qty: 1 0RF prednisone 20 mg tablet 20 mg PO BID Qty: 6 0RF prednisone 20 mg tablet 20 mg PO BID Qty: 6 0RF Primary Care Provider: Femi Richey Referrals: Femi Richey MD [Primary Care Provider] - As Needed Activity Restrictions/Additional Instructions: If there is any concern for infection i.e. redness, colored drainage, red streak follow-up with Dr. Richey. Disposition Disposition: Home, Self Care
[2022-10-16] MEDS: Diphth,Pertuss(Acell),Tet Vac 0.5 ML Vial IM (11:58)
[2022-10-16] MEDS: Naproxen 250 MG Tablet 500 MG PO (12:36)
== END 2022-10-16 12:44 | disposition home or self-care (01) ==
PROVIDERS: Emergency Provider Emergency Medicine; PCP Family Medicine; Visit Provider Emergency Medicine
DX: S61.432A Puncture wound without foreign body of left hand, initial encounter (principal); R20.2 Paresthesia of skin; W26.8XXA Contact with other sharp object(s), not elsewhere classified, initial encounter; J45.909 Unspecified asthma, uncomplicated; Z79.899 Other long term (current) drug therapy; Z23 Encounter for immunization
CPT/HCPCS: 73130; 90715; 96372; 99282